=== PATIENT | female | born 1945 | race Caucasian/White ===

== ENCOUNTER → 2016-12-03 | Outpatient (CLI) | payer MEDICARE ==
[~2016-12-03] MED LIST: ASPIR 8181 MG PO; CALCIUM + D SO1 EACH PO; CARVEDILOL6.25 MG PO; DUREZOL5 ML OU; ISORDIL DPS30 MG PO; LANTUS SOL100 UNIT/1 SQ; LASIX40 M1 PO; LIPITOR DPS40 MG PO; LISINOPRIL5 MG PO; METHOTREXATE2.5 MG PO; MILLIPRED5 MG PO; MULTIVITAMINS1 EAC1 PO; NEURONTIN DPS300 MG PO; NITROSTAT0.4 MG SL; NOVOLOG FL100 UNIT/1 SQ; PLAVIX75 MG PO; POTASSIUM CHLO10 ME2 PO; REQUIP0.25 MG PO; SURFAK DPS240 MG PO; TRIMETHOPRIM OU; VITAMIN D2000 UNIT PO
== END | disposition home or self-care (01) ==
LOC: RAD.S 13:11
DX: Z12.31 Encounter for screening mammogram for malignant neoplasm of breast (principal); R92.1 Mammographic calcification found on diagnostic imaging of breast